=== PATIENT | male | born 1985 | race Two or more races ===

== ENCOUNTER 2022-12-12 12:15 | Emergency (ER) | payer BC ==
[~2022-12-12] VITALS: Ht 185.4 cm; Wt 115.7 kg
[2022-12-12 13:59] VITALS: BP 140/94
[2022-12-12] MEDS ORDERED: AUG875T PO (16:12)
== END 2022-12-12 16:26 | disposition home or self-care (01) ==
LOC: ER 12:15
DX: S81.851A Open bite, right lower leg, initial encounter (principal); W64.XXXA Exposure to other animate mechanical forces, initial encounter; Y93.89 Activity, other specified; Y92.89 Other specified places as the place of occurrence of the external cause; Y99.8 Other external cause status